=== PATIENT | male | born 1980 | race Caucasian/White ===

== ENCOUNTER 2025-06-25 10:42 | Outpatient (REF) | payer OTHER, SELFPAY ==
[2025-06-25 10:53] LABS: MANUAL DIFF FLAG NO
[2025-06-25 11:57] LABS: Hematocrit 46.1 % (42.0-52.0); Hemoglobin 15.4 g/dl (14.0-18.0); Imm Gran Abs Auto 0.03 X10*3/uL (0.00-0.03); Imm Gran Pct Auto 0.4 % (0.0-0.4); Lymphocytes Absolute Auto 2.7 X10*3/uL (1.2-4.9); Mean Corpuscular HGB Conc 33.4 g/dl (31.0-36.0); Mean Corpuscular Hemoglobin 29.1 pg (27.0-33.0); Mean Corpuscular Volume 87.1 fL (80.0-98.0); NRBC Abs Auto 0.000 X10*3/uL (0.0-0.012); NRBC Pct Auto 0.0 /100WBC (0.0-0.2); Platelet Count 297 X10*3/uL (160-400); Red Blood Count 5.29 X10*6/uL (4.60-5.80); White Blood Count 6.7 X10*3/uL (4.8-10.8)
[2025-06-25 12:33] LABS: Alanine Aminotransferase 67 U/L (0-40); Albumin Level 4.6 g/dL (3.5-5.0); Alkaline Phosphatase 75 U/L (39-117); Anion Gap 12 (12-20); Aspartate Amino Transferase 31 U/L (5-37); Blood Urea Nitrogen 15 mg/dL (9-16); Calcium 9.5 mg/dL (8.4-10.2); Carbon Dioxide 26 mmol/L (22-29); Chloride 107 mmol/L (96-108); Estimated Glomerular Filt Rate > 60; Potassium 3.9 mmol/L (3.3-5.1); Sodium 141 mmol/L (135-145); Total Protein 7.5 g/dL (6.5-8.0)
--- OUTSIDE RECORDS SUMMARY | 2025-06-25 12:44 | XMS_ITS | Encounter Summary ---
Author Organization [facility] Address [address] [place] [address] Phone Care Team Providers Care Machinist Job Setter Name Role Phone AndrewLuciano cueva Shemarjosef PRODUCT MANAGER E [employer] Primary Care Provider [phone]- [phone] Encounter Details Date Type Department Care Team ([facility] st Contact Info) Description 02/22/2025 Procedure Pass OR Admitting Dept - Virtual Department [address] [place] [address] Social History Tobacco Use Types Packs/Day Years Used Date Smoking Tobacco: Former Cigarettes Q uit: 2008 Smokeless Tobacco: Never Alcohol Use Standard Drinks/Week Comments Yes 0 (1 standard drink = 0.6 oz pur e alcohol) 4-5x weekly Education Answer Date Recorded Are you interested in more education? Not on ambar e 01/31/2025 Are you concerned about learning? Not on file 01/31/2025 No 01/31/2025 No 01/31/2025 Food Answer Date Recorded Within the past 6 months we worried whether our food would run out before we got money to buy more. Unable to assess 025 Within the past 6 months the food we bought just didn't last and we didn't have enough money to get more. Unable to assess 01/30/2025 Residential Stability Answer Date Recor ded What is your housing situation today? Unable to assess 01/30/2025 How many times have you moved in the past 12 mon ths? Unable to assess 01/30/2025 Paying for Meds Answer Date Recorded Do you have trouble paying for medicines? Unable to assess 01/30/2025 Paying Utility Bills Answer Date Record ed Do you have trouble paying y our heating or electricity bill? Unable to assess 01/30/2025 Transportation Answer Date Recorded Has the lack of transportati on kept you from medical appointments or from getting medications? Unable to assess 01/30/2025 Digital Access Answer Date Recorded No 01/30/2025 No 01/30/2025 Do you have reliable internet access at home? Un able to assess 01/30/2025 Do you have a device (e.g., phone, tablet, computer) with a working camera? Unable to assess 01/30/2025 Intimate Partner Violence Answer Date R ecorded Are you denied basic needs s uch as food, clothing, or medical care? No 01/30/2025 In the past 12 months have y ou been in a relationship with a person who hurts, threatens, or tries to control you? No 01/30/2025 Are you denied basic needs s uch as food, clothing, or medical care? No 01/30/2025 In the past 12 months have y ou been in a relationship with a person who hurts, threatens, or tries to control you? No 01/30/2025 Sex and Gender Information Value Date Recorded Sex Assigned at Male 04/12/2018 12:25 PM EDT Legal Sex Male 12:11 PM EDT Gender Identity Male 04/12/2018 12:25 PM EDT Sexual Orientation Straight 04/12/2018 12 :25 PM EDT documented as of this encounter Plan of Treatment Not on file documented as of this encounter Visit Diagnoses Not on filedocumented in this encounter Care Teams Machinist Job Setter Relationship Specialty Start Date End Date Luciano Morales NP [address] [place] [address] PCP - General Nurse Practitioner 02/01/25 documented as of this encounter Additional Source Comments The information contained in this document represents components of the legal health record. It is not the complete legal health record.[facility]
--- OUTSIDE RECORDS SUMMARY | 2025-06-25 12:44 | XMS_ITS | Clinical Summary ---
Author Organization [facility] Address [address] [place] [address] Phone Care Team Providers Care Electronic Game Developer Name Role Phone AndrewLuciano Shemarjosef SAP ARCHITECT Primary Care Provider [phone]- [phone] Allergies No known active allergies Medications albuterol 90 mcg/actuation inhaler Inhale 2 puffs into the lungs every 4 (four) hours. 1 Inhaler 04/12/2018 Active inhaler spacing device (AEROCHAMBER,BR EATHERITE) Spcr Inhale 2 each into the lungs 4 (four) times a day as needed. 1 each 04/12/2018 Active cloNIDine HCL (CATAPRES) 0.1 MG tablet Take 0.1 mg by mouth 2 (two) times a day. 02/08/2025 Active FLUoxetine (PROZAC) 40 MG capsule Take 1 capsule by mouth every morning. 02/08/2025 Active melatonin 5 mg Tab Take 5 mg by mouth nightly at bedtime as needed. 02/08/2025 Active ibuprofen (ADVIL,MOTRIN) 200 MG tablet Take 200 mg by mouth every 6 (six) hours as needed for pain (specific location in comments). Active oxyCODONE 5 MG immediate release tablet Take 1-2 tablets (5-10 mg total) by mouth every 6 (six) hours as needed for pain (specific location in comments). Partial fill ok 15 tablet 02/22/2025 Active Active Problems Problem Noted Date Diagnosed Date Fracture, Colles, right, closed 02/22/2025 Social History Tobacco Use Types Packs/Day Years Used Date Smoking Tobacco: Former Cigarettes Q uit: 2007 Smokeless Tobacco: Never Tobacco Cessation:Counseling Given: Not Answered Alcohol Use Standard Drinks/Week Comments Yes 0 [...] have you moved in the past 12 tue th? Unable to assess 01/30/2025 Paying for Meds [...] Orientation Straight 04/12/2018 12 :25 PM EDT Last Filed Vital Signs Vital Sign Reading Time Taken Comments Blood Pressure 146/66 02/22/2025 4:05 PM EDT Pulse 70 02/22/2025 3:25 PM EDT Temperature 36.5 C (97.7 F) 02/22/2025 4:05 PM EDT Respiratory Rate 14 02/22/2025 3:25 PM EDT Oxygen Saturation 96% 02/22/2025 4:05 PM EDT Inhaled Oxygen Concentration - - Weight 136.1 kg (300 lb) 02/20/2025 10:36 AM EDT Height 175.3 cm (5' 9 ) 02/20/2025 10:36 AM EDT Body Mass Index 44.3 02/20/2025 10:36 AM EDT Plan of Treatment Health Maintenance Due Date Last Done Comments Adult Td,Tdap Booster 1980 LIPID PANEL 1980 DEPRESSION SCREENING 1992 HEPATITIS C SCREENING 1998 HIV ONE-TIME SCREENING (18-6 5 YEARS) 1998 SCREENING FOR DIABETES 04/12/2021 04/12/2018 INFLUENZA VACCINE (#1) 2025 COLOGUARD 2025 COLONOSCOPY 2025 COLORECTAL CANCER SCREENING 2025 FIT TEST 2025 FOBT 2025 SIGMOIDOSCOPY 2025 VIRTUAL COLONOSCOPY 2025 COVID-19 VACCINE (1 - 2023-2 5 season) 2025 SMOKING Hx and SMOKELESS TOB ACCO SCREENING 02/20/2026 02/20/2025 HEPATITIS A VACCINES Aged Out No long er eligible based on patient's age to complete this topic HIB VACCINES Aged Out No longer eligi ble based on patient's age to complete this topic MENINGOCOCCAL VACCINES (ACWY) Aged Out No longer eligible based on patient's age to complete this topic MENINGOCOCCAL VACCINES (B) Aged Out N o longer eligible based on patient's age to complete this topic PNEUMOCOCCAL VACCINES (0-49 years) Aged Out No longer eligible based on patient's age to complete this topic Medical Devices Implanted Type Area Associate Application Developer Device Identifier Shelf Expiration Date Model / Serial / Lot Screw Bone 2.7x14mm Variax 2 T8 Non Locking Fully Threaded Mini [id number] - [id number] Implanted:Qty: 1 on 02/22/2025 by Yaritza Lopez MD at [facility] Right: Wrist [employer] [id number] / / Screw Bone 2.4x20mm Variax 2 T8 Locking Fully Threaded Mini - [id number] Implanted:Qty: 3 on 02/22/2025 by Yaritza Lopez MD at [facility] Right: Wrist [employer] [id number] / / Screw Bone 2.4x22mm Variax 2 T8 Locking Fully Threaded Mini - [id number] Implanted:Qty: 2 on 02/22/2025 by Yaritza Lopez MD at [facility] Right: Wrist [employer] [id number] / / Variax Volar Distal Radius Plate Standard 54mm 4 Hole Implanted:Qty: 1 on 02/22/2025 by Yaritza Lopez MD at [facility] Right: Wrist [employer] [id number] / / Screw Bone 2.4x18mm Variax 2 T8 Locking Fully Threaded Mini - [id number] Implanted:Qty: 1 on 02/22/2025 by Yaritza Lopez MD at [facility] Right: Wrist [employer] [id number] / / Screw Bone 2.4x24mm Variax 2 T8 Locking Fully Threaded Mini - [id number] Implanted:Qty: 1 on 02/22/2025 by Yaritza Lopez MD at [facility] Right: Wrist [employer] [id number] / / Screw Bone 2.7x14mm Variax 2 T8 Locking Fully Threaded Mini - [id number] Implanted:Qty: 2 on 02/22/2025 by Yaritza Lopez MD at [facility] Right: Wrist [employer] [id number] / / [place] [address] [place] [address] ACO ACO [place] [address] [place] [address] ACO Care Teams Electronic Game Developer Relationship Specialty Start Date End Date Luciano Morales NP [address] [place] [address] PCP - General Nurse Practitioner 02/01/25 Additional Source Comments The information contained in this document represents components of the legal health record. It is not the complete legal health record.[facility]
--- OUTSIDE RECORDS SUMMARY | 2025-06-25 12:44 | XMS_ITS | Patient Health Record ---
Author Organization [facility] Address [address] [place] [address] Care Team Providers Care Supervisor Coremaker Name Role Phone NO, PCP Primary Care Provider Raquel Golden Unavailable [phone] Reason For Referral No Information Social History Sex Assigned At : Social History Observation Description Sex Assigned At Male Encounters Encounter Location Date Provider Diagnosis [facility] [address] [place], [place] [id number] 07/02/2024 Raquel Golden Plan Of Treatment No Information Insurance Providers Payer Name Payer Address Payer Phone Subscriber Number Group Number Insured Name Patient Relationship to Insured Coverage Start Date Coverage End Date Insurance Pending [address] [place] [address] Jose Thomas Self - patient is the insured
--- OUTSIDE RECORDS SUMMARY | 2025-06-25 12:44 | XMS_ITS | Encounter Summary ---
Author Organization [facility] Address [address] [place] [address] Phone Care Team Providers Care A P Manager Name Role Phone Luciano Morales Shemarjosef UPHOLSTERER INSIDE Primary Care Provider [phone]- [phone] Encounter Details Date Type Department Care Team ([facility] Contact Info) Description 02/19/2025 Prep for Surgery [facility] [address] [place] [id number] Yaritza Lopez MD [address] [place] [address] Orthopedics & Sports Medicine, [place] [address] [email or web address] Social History Tobacco Use Types Packs/Day Years [...] on filedocumented in this encounter Care Teams A P Manager Relationship Specialty Start Date End Date Luciano Morales NP [address] [place] [address] PCP - General Nurse Practitioner 02/01/25 documented as of this encounter Additional Source Comments The information contained in this document represents components of the legal health record. It is not the complete legal health record.[facility]
[2025-06-25 12:49] LABS: Thyroid Stimulating Hormone 1.98 uIU/mL (0.32-4.0)
== END 2025-06-25 10:43 | disposition home or self-care (01) ==
LOC: HO.LAB 10:42
PROVIDERS: PCP Nurse Practitioner Family; Visit Provider Dietitian, Registered
DX: F33.2 Major depressive disorder, recurrent severe without psychotic features (principal); F43.10 Post-traumatic stress disorder, unspecified
CPT/HCPCS: 36415; 80053; 84443; 85025